=== PATIENT | male | born 1975 | race Caucasian/White ===

== ENCOUNTER 2020-01-16 06:25 | Outpatient (CLI) | payer BC, OTHER ==
[2020-01-17 12:16] LABS: SARS-CoV-2 MS2 Positive; SARS-CoV-2 N Gene Negative; SARS-CoV-2 S Gene Negative; SARS-CoV-2 orf1ab Negative
== END 2020-01-16 06:26 | disposition home or self-care (01) ==
LOC: LABBT 06:25
PROVIDERS: ATTEND Neurological Surgery
DX: Z01.818 Encounter for other preprocedural examination (principal); Z11.59 Encounter for screening for other viral diseases; M54.16 Radiculopathy, lumbar region
CPT/HCPCS: 87635; 93005; 93010; U0003

== ENCOUNTER 2020-01-21 06:47 | Day surgery (SDC) | payer BC ==
[2020-01-14 09:42] VITALS: BMI 37.1
--- NOTE | 2020-01-20 14:40 | HP ---
HISTORY: Mr. Sanz is referred to us for evaluation of chronic lower back pain and what sounds to be symptoms of neurogenic claudication. This began some 15 years ago after a fall on his tailbone. He also feels radicular symptoms to the bilateral anterior thighs, which become severe when up and standing. He is managing with gabapentin and 800 mg of ibuprofen as well as chiropractic visits. He states all of this helps to reduce some of the intensity of his pain, but never makes it fully go away. Examination is deferred. He has new MRI of the lumbar spine, which reveals [id number] bilateral lateral recess stenosis at L3-L4, that is most likely contributing to his symptoms. He hopes to manage this surgically if possible. PAST MEDICAL HISTORY: Significant for: 1. Hypertension. 2. Gastroesophageal reflux disease. 3. Chronic pain. CURRENT MEDICATIONS: 1. Ibuprofen. 2. Pramipexole. 3. Pantoprazole. 4. Gabapentin. ALLERGIES: NO KNOWN DRUG ALLERGIES. SOCIAL HISTORY: Current tobacco user. Social alcohol use. Denies drug use. ASSESSMENT: Lumbar spinal stenosis and radiculopathy. PLAN: Dr. Sanz met with the patient, reviewed imaging, advocated for an L3-L4 decompression. He explained to the patient the risks, benefits, and alternatives to the procedure. The patient expressed understanding and elected to move forward with surgery as discussed. I do believe the patient is mentally competent and capable of making medical decisions for himself. We will move forward with surgery as planned. Job ID: [id number]
[2020-01-21] MEDS ORDERED: EPINEPHrine 1 MG/ML AMP ONE (08:13)
[2020-01-21] MEDS ORDERED: Bupivacaine PF 0.5% 30 ML VIAL ONE (08:13)
[2020-01-21] MEDS ORDERED: Thrombin 5000 UNITS/5 ML VIAL ONE (08:14)
[2020-01-21] MEDS ORDERED: Fentanyl 100 MCG/2 ML VIAL ONE ×4 (08:58→11:45)
--- NOTE | 2020-01-21 10:40 | OP ---
DATE OF PROCEDURE: 01/21/2020 [employer]UE[employer] SERVICES REPRESENTATIVE: Leobardo Solorio PA-C INDICATION: Pain. DIAGNOSIS: Lumbar stenosis. PROCEDURE PERFORMED: L3-L4 decompression. ANESTHESIA: General. DESCRIPTION OF PROCEDURE: The patient was brought into the operating room and placed under general anesthesia. He was flipped from the supine to prone position on the operating room table. A linear incision was planned over the L3-L4 segment. After prepping and draping and after an appropriate operative pause, the incision was created. The soft tissues were swept away from midline. A self-retaining retractor was placed. After confirming the appropriate level with C-arm fluoroscopy, an Adson rongeur was used to remove the spinous process along the inferior aspect of L3 and the superior aspect of L4. High-speed cutting drill bit as well as 2, 3, and 4 mm Kerrisons were used to perform a laminectomy, extending from the inferior aspect of L3 to superior aspect of L4. The laminectomy was extended laterally to encompass the medial aspect of the facet joints. After decompressing the lateral recesses as well as central canal, the wound was irrigated. Hemostasis was maintained throughout. The wound was then closed in anatomic layers and a pressure dressing was applied. There were no known procedural complications. Job ID: [id number]
[2020-01-21] MEDS ORDERED: Tamsulosin HCl 0.4 MG CAP ONE (11:02)
[2020-01-21] MEDS ORDERED: Dexamethasone 20 MG/5 ML VIAL ONE (11:05)
[2020-01-21] MEDS ORDERED: Ondansetron PF 4 MG/2 ML Vial ONE (11:05)
[2020-01-21] MEDS ORDERED: PHENYLEPHRINE-NS 100 MCG/ML 10 ML SYRINGE ONE (11:05)
[2020-01-21] MEDS ORDERED: PROPOFOL 200 MG/20 ML VIAL ONE (11:05)
[2020-01-21] MEDS ORDERED: EPHEDRINE 25 MG/5 ML SYRINGE ONE (11:05)
[2020-01-21] MEDS ORDERED: Lidocaine 1% PF 5 ML VIAL ONE (11:05)
[2020-01-21] MEDS ORDERED: Glycopyrrolate 0.2 MG/ML 5 ML SYRINGE ONE (11:05)
[2020-01-21] MEDS ORDERED: Rocuronium Bromide 10 MG/ML (10ML VIAL) ONE (11:05)
[2020-01-21] MEDS ORDERED: Ketorolac Tromethamine 30 MG/ML VIAL ONE (11:05)
[2020-01-21] MEDS ORDERED: Acetaminophen/Codeine 30-300mg Tablet ONE (12:27)
[2020-01-21] MEDS ORDERED: Morphine 2 MG/ML VIAL ONE (12:51)
== END 2020-01-21 13:30 | disposition home or self-care (01) ==
LOC: SDC 06:47
PROVIDERS: ATTEND Neurological Surgery
PROC: 00NY0ZZ Release Lumbar Spinal Cord, Open Approach (ICD-10-PCS; principal; 2020-01-21)
DX: M48.061 Spinal stenosis, lumbar region without neurogenic claudication (principal); M54.16 Radiculopathy, lumbar region; I10 Essential (primary) hypertension; K21.9 Gastro-esophageal reflux disease without esophagitis; G89.29 Other chronic pain; F17.290 Nicotine dependence, other tobacco product, uncomplicated; Z79.899 Other long term (current) drug therapy
CPT/HCPCS: 76000; J0171; J0690; J1100; J1885; J2270; J2405; J2704; J3010; S0020

== ENCOUNTER 2020-04-15 08:32 | Outpatient (CLI) | payer BC ==
--- NOTE | 2020-04-15 12:13 | MRI ---
MRI LUMBAR SPINE WITH AND WITHOUT CONTRAST: Date: 04/15/2020 INDICATION: Lumbar radiculopathy. Back pain. Surgery on 01/21/2020. Comparison made to MRI lumbar spine dated 11/27/2019. FINDINGS: Lumbar vertebra maintain height and alignment and exhibit normal signal. Disc spaces are preserved wi th degenerative disc signal change. Postoperative changes are now noted at the L3-4 level. Posterior laminectomy change at this level. Th ere continues to be a broad based bulge at this level. Postcontrast images show diffuse enhancement in the operative bed posteriorly and surrounding the fac et joints and extending into the epidural space. There is a focal area of high T2 signal in the posterior operative bed between the facet joints just posterior to the epidural space which measures approximately 1.5 cm AP dimension. Considerations incl ude small focal abscess and small focal hematoma or seroma. Recommend clinical correlation and close follow-up. Findings at the other levels remain stable. The disc bulges at L2-3, L4-5, and L5-S1 are again noted with posterior hypertrophic changes previously described. IMPRESSION: Postoperative changes now seen at L3-4 with enhancement posteriorly within the operative bed. There i s a small high T2 signal collection in the posterior operative bed at the laminectomy site posterior to the epidural space measuring 1.5 cm with surrounding postoperative enhancement. Small abscess is n ot excluded radiographically. Other considerations include small hematoma or seroma. Recommend clinic al correlation and close follow-up as indicated. Findings were relayed to Dr. Sanz's PA by phone at time of dictation. CODE CR.
== END 2020-04-15 08:33 | disposition home or self-care (01) ==
LOC: TBSIIMAG 08:32
PROVIDERS: ATTEND Neurological Surgery
DX: M54.16 Radiculopathy, lumbar region (principal); Z98.890 Other specified postprocedural states
CPT/HCPCS: 72158

== ENCOUNTER 2021-08-04 11:27 | Outpatient (CLI) | payer BC ==
[2021-08-04 23:05] LABS: SARS-CoV-2 PCR by NAA Not Detected (NotDetected)
== END 2021-08-04 11:28 | disposition home or self-care (01) ==
LOC: LABBT 11:27
PROVIDERS: ATTEND Neurological Surgery
DX: Z01.812 Encounter for preprocedural laboratory examination (principal); M54.16 Radiculopathy, lumbar region; Z20.822 Contact with and (suspected) exposure to COVID-19
CPT/HCPCS: U0003; U0005

== ENCOUNTER 2021-08-08 10:40 | Day surgery (SDC) | payer BC ==
[2021-08-04 11:05] VITALS: BMI 37.7
[2021-08-08] MEDS ORDERED: Midazolam HCl 2 mg/2 ml Vial ONE ×2 (11:58→14:03)
[2021-08-08] MEDS ORDERED: Lidocaine 1% PF 5 ML VIAL ONE (12:00)
[2021-08-08] MEDS ORDERED: PHENYLEPHRINE-NS 100 MCG/ML 10 ML SYRINGE ONE (12:00)
[2021-08-08] MEDS ORDERED: Metoclopramide HCl 10 MG/2 ML VIAL ONE (12:00)
[2021-08-08] MEDS ORDERED: PROPOFOL 200 MG/20 ML VIAL ONE (12:00)
[2021-08-08] MEDS ORDERED: ePHEDrine 50 MG/ML VIAL ONE (12:00)
[2021-08-08] MEDS ORDERED: Ondansetron PF 4 MG/2 ML Vial ONE (12:00)
[2021-08-08] MEDS ORDERED: Famotidine/PF 20 mg/2ml Vial ONE (12:02)
[2021-08-08] MEDS ORDERED: Fentanyl 100 MCG/2 ML VIAL ONE ×2 (12:02→14:04)
== END 2021-08-08 14:49 | disposition home or self-care (01) ==
LOC: SDC 10:40 → EDSTATUS 12:00 → SDC 14:49
PROVIDERS: ATTEND Neurological Surgery
DX: M47.26 Other spondylosis with radiculopathy, lumbar region (principal); M48.061 Spinal stenosis, lumbar region without neurogenic claudication; M48.07 Spinal stenosis, lumbosacral region; M25.78 Osteophyte, vertebrae; M19.90 Unspecified osteoarthritis, unspecified site; I10 Essential (primary) hypertension; F17.200 Nicotine dependence, unspecified, uncomplicated; K21.9 Gastro-esophageal reflux disease without esophagitis; F40.240 Claustrophobia; Z79.899 Other long term (current) drug therapy; Z98.890 Other specified postprocedural states
CPT/HCPCS: 72131; 72158; 93005; 93010; J2250; J2405; J2704; J2765; J3010; J3490; S0028

== ENCOUNTER 2021-08-23 14:10 | Outpatient (CLI) | payer BC ==
[2021-08-23 23:47] LABS: SARS-CoV-2 PCR by NAA Not Detected (NotDetected)
== END 2021-08-23 14:11 | disposition home or self-care (01) ==
LOC: LABBT 14:10
PROVIDERS: ATTEND Neurological Surgery
DX: Z01.812 Encounter for preprocedural laboratory examination (principal); M54.16 Radiculopathy, lumbar region; Z20.822 Contact with and (suspected) exposure to COVID-19
CPT/HCPCS: U0003; U0005

== ENCOUNTER 2021-08-26 05:44 | Day surgery (SDC) | payer BC ==
[2021-08-26] MEDS ORDERED: Fentanyl 250 MCG/5 ML VIAL ONE ×3 (06:25→11:46)
[2021-08-26] MEDS ORDERED: Thrombin 5000 UNITS/5 ML VIAL ONE (06:34)
[2021-08-26] MEDS ORDERED: Bupivacaine PF 0.5% 30 ML VIAL ONE (06:34)
[2021-08-26] MEDS ORDERED: EPINEPHrine 1 MG/ML AMP ONE (06:34)
[2021-08-26] MEDS ORDERED: Vecuronium 10 MG VIAL ONE (07:14)
[2021-08-26] MEDS ORDERED: PHENYLEPHRINE-NS 100 MCG/ML 10 ML SYRINGE ONE ×2 (07:14→08:10)
[2021-08-26] MEDS ORDERED: PROPOFOL 200 MG/20 ML VIAL ONE (07:14)
[2021-08-26] MEDS ORDERED: Rocuronium Bromide 10 MG/ML (10ML VIAL) ONE (07:14)
[2021-08-26] MEDS ORDERED: Dexamethasone 20 MG/5 ML VIAL ONE (07:14)
[2021-08-26] MEDS ORDERED: Ondansetron PF 4 MG/2 ML Vial ONE (07:14)
[2021-08-26] MEDS ORDERED: Lidocaine 1% PF 5 ML VIAL ONE (07:14)
[2021-08-26] MEDS ORDERED: ePHEDrine 50 MG/ML VIAL ONE (07:14)
[2021-08-26] MEDS ORDERED: HYDROmorphone 2 MG/ML VIAL ONE (10:01)
[2021-08-26] MEDS ORDERED: SUGAMMADEX SODIUM 200 MG/2 ML VIAL ONE (10:07)
[2021-08-26] MEDS ORDERED: Lidocaine 1% MPF 2 ML VIAL ONE (11:30)
[2021-08-26] MEDS ORDERED: Tamsulosin HCl 0.4 MG CAP ONE (12:08)
[2021-08-26] MEDS ORDERED: Morphine 4 MG/ML VIAL ONE (13:40)
[2021-08-26] MEDS ORDERED: HYDROcodone/Acetaminophen 5/325 mg Tablet ONE (14:35)
[2021-08-26] MEDS ORDERED: ceFAZolin (BATCH) 2 GM/100 ML BAG ONE (14:55)
[2021-08-26] MEDS ORDERED: Cyclobenzaprine 10 MG TAB ONE (15:10)
== END 2021-08-26 15:57 | disposition home or self-care (01) ==
LOC: SDC 05:44
PROVIDERS: ATTEND Neurological Surgery
PROC: 0SG0071 Fusion of Lumbar Vertebral Joint with Autologous Tissue Substitute, Posterior Approach, Posterior Column, Open Approach (ICD-10-PCS; principal; 2021-08-26)
DX: M47.26 Other spondylosis with radiculopathy, lumbar region (principal); M48.061 Spinal stenosis, lumbar region without neurogenic claudication; E78.5 Hyperlipidemia, unspecified; M19.90 Unspecified osteoarthritis, unspecified site; G25.81 Restless legs syndrome; F17.200 Nicotine dependence, unspecified, uncomplicated; Z79.899 Other long term (current) drug therapy
CPT/HCPCS: 76000; C1713; C1768; J0171; J0690; J1100; J1170; J2270; J2405; J2704; J3010; J3490; S0020